=== PATIENT | female | born 1960 | race Caucasian/White ===

== ENCOUNTER 2016-07-15 16:20 | Outpatient (CLI) | payer MEDICAID | END 2016-07-15 16:21 | disposition home or self-care (01) | DX: M16.11 Unilateral primary osteoarthritis, right hip (principal); M17.12 Unilateral primary osteoarthritis, left knee ==

== ENCOUNTER 2017-01-09 13:27 | Emergency (ER) | payer MEDICAID ==
[2017-01-09 13:40] VITALS: BP 138/87
--- NOTE | 2017-01-09 14:18 | ED Physician Documentation ---
PD HPI LOWER EXT INJURY - Stated complaint Stated Complaint: L KNEE PX - Chief complaint Chief Complaint: Ext Problem - History obtained from History obtained from: Patient - History of Present Illness PD HPI LOW EXT INJURY LOCATION: Other (Long-standing anterior left knee pain and pain with flexion. She had x-rays done showing osteoarthritis. Went to the orthopedics office a couple of months ago and had some sort of injection which was ineffective. Declines pain medications, she would just like it fixed. ) Review of Systems Constitutional: denies: Fever, Chills GI: denies: Abdominal Pain, Nausea : denies: Dysuria PD PAST MEDICAL HISTORY - Past Medical History Past Medical History: Yes Cardiovascular: None, Deep vein thrombosis Respiratory: Asthma, COPD, Tuberculosis Neuro: None Endocrine/Autoimmune: None GI: Diverticulitis BOLT SORTER: None : None HEENT: None, Other Psych: Depression, Anxiety, Claustrophobia Musculoskeletal: Osteoarthritis Derm: None Other Past Medical History: upper and lower dentures - Past Surgical History Past Surgical History: Yes General: Cholecystectomy, Appendectomy, Bowel surgery, Liver surgery, Colonoscopy Ortho: Carpal Tunnel surgery /BOLT SORTER: Tubal ligation - Present Medications Home Medications: Ambulatory Orders Medication Instructions Recorded Confirmed Albuterol Sulf [Ventolin Hfa 1 - 2 puffs INH Q4HR PRN #1 inhaler 05/18/16 Inhaler] Azithromycin [Zithromax] 250 mg PO DAILY #6 tablet 05/18/16 Prednisone 40 mg PO DAILY #10 tablet 05/18/16 Meloxicam [Mobic] 7.5 mg PO BIDWM PRN #15 tablet 01/09/17 - Allergies Allergies/Adverse Reactions: Allergies Allergy/AdvReac Type Severity Reaction Status Date / Time No Known Drug Allergies Allergy Verified 01/09/17 13:40 - Social History Does the pt smoke?: Yes Smoking Status: Current every day smoker Does the pt drink ETOH?: No Does the pt have substance abuse?: No - Immunizations Immunizations are current?: Yes - POLST Patient has POLST: No PD ED PE NORMAL - Vitals Vital signs reviewed: Yes - General General: Alert and oriented X 3, No acute distress - Extremities Extremities: Other (Left knee is nontender. She does have pain with flexion, no effusion. No warmth or redness. Ligaments are intact.) - Neuro Neuro: Alert and oriented X 3, Normal speech - Psych Psych: Normal mood, Normal affect Results - Vitals Vitals: Vital Signs - 24 hr 01/09/17 13:38 Temperature 36.7 C Heart Rate 100 Respiratory 17 Rate Blood Pressure 138/87 H O2 Saturation 96 Oxygen O2 Source Room air PD MEDICAL DECISION MAKING - ED course ED course: She declines narcotic pain medication but did accept an anti-inflammatory. She understands she needs to follow-up in the office for evaluation for potential definitive treatment of osteoarthritis of the left knee. Departure - Departure Disposition: 01 Home, Self Care Clinical Impression: Osteoarthritis of left knee Qualifiers: Osteoarthritis type: primary Qualified Code(s): M17.12 - Unilateral primary osteoarthritis, left knee Condition: Good Record reviewed to determine appropriate education?: Yes Instructions: ED Degenerative Joint Disease Follow-Up: Yifan Caraballo MD [Provider Admit Priv/Credential] - Prescriptions: Meloxicam [Mobic] 7.5 mg PO BIDWM PRN #15 tablet PRN Reason: Pain Comments: Your blood pressure was elevated today on check into the emergency department. This does not mean that you have hypertension, it is a common phenomenon to come to the emergency department and have elevated blood pressure. I recommend that she see her primary care physician within the week to have it rechecked when you are feeling better.
== END 2017-01-09 14:28 | disposition home or self-care (01) ==
LOC: ED 13:27
DX: M17.12 Unilateral primary osteoarthritis, left knee (principal); R03.0 Elevated blood-pressure reading, without diagnosis of hypertension; J44.9 Chronic obstructive pulmonary disease, unspecified; J45.909 Unspecified asthma, uncomplicated; F17.200 Nicotine dependence, unspecified, uncomplicated; Z79.52 Long term (current) use of systemic steroids; Z86.718 Personal history of other venous thrombosis and embolism; Z90.49 Acquired absence of other specified parts of digestive tract
CPT/HCPCS: 99283

== ENCOUNTER 2017-03-06 08:00 | Outpatient (CLI) | payer MEDICAID ==
[2017-03-06 20:03] LABS: BASOPHILS # (AUTO) 0.1 10^3/uL (0.0-0.1); BASOPHILS % (AUTO) 0.7 %; EOSINOPHILS # (AUTO) 0.3 10^3/uL (0.0-0.7); EOSINOPHILS % (AUTO) 2.6 %; HCT - HEMATOCRIT 41.7 % (37.0-47.0); HGB - HEMOGLOBIN 13.5 g/dL (12.0-16.0); LYMPHOCYTES # (AUTO) 3.5 10^3/uL (1.5-3.5); LYMPHOCYTES % (AUTO) 32.8 %; MEAN CORPUSCULAR HEMOGLOBIN 26.4 pg (27.0-31.0); MEAN CORPUSCULAR HGB CONC 32.4 g/dL (32.0-36.0); MEAN CORPUSCULAR VOLUME 81.4 fL (81.0-99.0); MEAN PLATELET VOLUME 9.3 fL (7.9-10.8); MONOCYTES # (AUTO) 0.5 10^3/uL (0.0-1.0); MONOCYTES % (AUTO) 4.8 %; NEUTROPHILS # (AUTO) 6.4 10^3/uL (1.5-6.6); NEUTROPHILS % (AUTO) 59.1 %; NUCLEATED RED BLOOD CELLS AUTO 0.1 /100WBC; RED BLOOD COUNT 5.12 10^6/uL (4.20-5.40); RED CELL DISTRIBUTION WIDTH 14.1 % (12.0-15.0); UNCORRECTED WHITE BLOOD COUNT 10.8 x10^3/uL; WHITE BLOOD COUNT 10.8 x10^3/uL (4.8-10.8)
[2017-03-06 20:25] LABS: ALBUMIN/GLOBULIN RATIO 1.2 (1.0-2.2); BILIRUBIN,TOTAL 0.6 mg/dL (0.2-1.0); BUN - BLOOD UREA NITROGEN 11 mg/dL (6-20); CALCIUM 9.3 mg/dL (8.5-10.3); CARBON DIOXIDE - CO2 29 mmol/L (21-32); CHLORIDE 103 mmol/L (101-111); CHOL/HDL RATIO 5.8 (<4.4); CHOLESTEROL 251 mg/dL; CREATININE 0.6 mg/dL (0.4-1.0); GFR - MDRD 103 (>89); GLUCOSE 105 mg/dL (70-100); HDL CHOLESTEROL 43 mg/dL; LDL/HDL RATIO 3.9 (<4.4); POTASSIUM 4.1 mmol/L (3.5-5.0); SODIUM 140 mmol/L (135-145); TOTAL PROTEIN 7.3 g/dL (6.7-8.2); TRIGLYCERIDES 198 mg/dL; VLDL CHOLESTEROL 40 mg/dL
== END 2017-03-06 08:01 | disposition home or self-care (01) ==
LOC: LAB.N 08:00
PROVIDERS: ATTEND Family Medicine
DX: E78.5 Hyperlipidemia, unspecified (principal); F17.200 Nicotine dependence, unspecified, uncomplicated
CPT/HCPCS: 36415; 80053; 80061; 85025

== ENCOUNTER 2017-06-06 17:52 | Emergency (ER) | payer MEDICAID ==
[2017-06-06 17:57] VITALS: BP 130/87
--- NOTE | 2017-06-06 18:20 | ED Physician Documentation ---
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 She just had a grandson and the mom is worried about her potentially being contagious for TB. The patient has no symptoms, no cough no hot, no hemoptysis, weight loss, sweats.) Review of Systems Constitutional: denies: Fever, Chills, Myalgias, Fatigue, Weight Loss, Sweats Nose: reports: Reviewed and negative Cardiac: reports: Reviewed and negative Respiratory: reports: Reviewed and negative PD PAST MEDICAL HISTORY - Past Medical History Cardiovascular: None, Deep vein thrombosis Respiratory: Asthma, COPD, Tuberculosis Neuro: None Endocrine/Autoimmune: None GI: Diverticulitis LAW REPORTER: None : None HEENT: None, Other Psych: Depression, Anxiety, Claustrophobia Musculoskeletal: Osteoarthritis Derm: None - Past Surgical History Past Surgical History: Yes General: Cholecystectomy, Appendectomy, Bowel surgery, Liver surgery, Colonoscopy Ortho: Carpal Tunnel surgery /LAW REPORTER: Tubal ligation - Present Medications Home Medications: Ambulatory Orders Medication Instructions Recorded Confirmed Albuterol Sulf [Ventolin Hfa 1 - 2 puffs INH Q4HR PRN #1 inhaler 05/18/16 Inhaler] - Allergies Allergies/Adverse Reactions: Allergies Allergy/AdvReac Type Severity Reaction Status Date / Time No Known Drug Allergies Allergy Verified 01/09/17 13:40 - Social History Does the pt smoke?: Yes Smoking Status: Current every day smoker Does the pt drink ETOH?: No Does the pt have substance abuse?: No - Immunizations Immunizations are current?: Yes - POLST Patient has POLST: No PD ED PE NORMAL - Vitals Vital signs reviewed: Yes - General General: Alert and oriented X 3, No acute distress - Neuro Neuro: Alert and oriented X 3, Normal speech - Psych Psych: Normal mood, Normal affect Results - Vitals Vitals: Vital Signs - 24 hr 06/06/17 17:55 Temperature 36.2 C L Heart Rate 108 H Respiratory 20 Rate Blood Pressure 130/87 H O2 Saturation 95 Oxygen O2 Source Room air Departure - Departure Disposition: 01 Home, Self Care Clinical Impression: PPD positive, treated Condition: Good Record reviewed to determine appropriate education?: Yes Comments: Follow-up with your doctor for further evaluation and treatment, based that on the fact that she has no symptoms you will not be contagious for TB. Your blood pressure was elevated today on check into the emergency department. This does not mean that you have hypertension, it is a common phenomenon to come to the emergency department and have elevated blood pressure. I recommend that you see your primary care physician within the week to have it rechecked when you are feeling better.
== END 2017-06-06 18:37 | disposition home or self-care (01) ==
LOC: ED 17:52
DX: R76.11 Nonspecific reaction to tuberculin skin test without active tuberculosis (principal); R03.0 Elevated blood-pressure reading, without diagnosis of hypertension; F17.200 Nicotine dependence, unspecified, uncomplicated; Z86.718 Personal history of other venous thrombosis and embolism
CPT/HCPCS: 99281; 99283

== ENCOUNTER 2017-07-07 20:13 | Emergency (ER) | payer MEDICAID ==
[2017-07-07] MEDS ORDERED: predniSONE 20 MG TABLET PO STA (21:07)
[2017-07-07] MEDS ORDERED: IPRATROPIUM/ALBUTEROL 3 ML NEB INH STA (21:07)
[2017-07-07 21:38] VITALS: BP 110/65
--- NOTE | 2017-07-07 21:39 | XRAY Preliminary Report ---
Exam: XR CHEST 2 VIEW X-RAY IMPRESSION: No acute cardiopulmonary abnormality. [facility] SITE ID: [id number]
--- NOTE | 2017-07-07 21:40 | XRAY Report ---
EXAM: CHEST RADIOGRAPHY EXAM DATE: 07/07/2017 08:56 PM. CLINICAL HISTORY: Fever, cough. COMPARISON: 05/18/2016. TECHNIQUE: 2 views. FINDINGS: Lungs/Pleura: There is a calcified granuloma in the right lung which is unchanged. No acute pneumonia or edema. Negative for pleural effusion and pneumothorax. Mediastinum: There is moderate scoliotic curvature of the thoracic spine. The heart size is normal. Other: None. IMPRESSION: No acute cardiopulmonary abnormality. [facility] Referring Provider Line: [phone] SITE ID: [id number]
--- NOTE | 2017-07-07 22:00 | ED Physician Documentation ---
PD HPI DYSPNEA - Stated complaint Stated Complaint: SERGE/DIFF BREATHING - Chief complaint Chief Complaint: Resp - History obtained from History obtained from: Patient, Family - History of Present Illness Timing - onset: How many days ago (4) Timing - details: Gradual onset, Still present Improved by: O2, Inhaler/neb Worsened by: Exertion Associated symptoms: Cough, Wheezing. No: Fever, Chest pain / discomfort, Bilateral edema, Unilateral edema Similar symptoms before: Work up / diagnostics, Treatment Recently seen: Not recently seen - Additional information Additional information: Patient is a 56 year old female with a history of copd and daily smoking who is presenting to the emergency department for worsening cough. patient states that the cough has been going on for about the last week but now she feels like it is in her chest and she wanted to make sure that it wasn't pneumonia. Review of Systems Constitutional: denies: Fever, Chills Eyes: denies: Decreased vision, Photophobia Ears: denies: Ear pain, Drainage/discharge Nose: denies: Rhinorrhea / runny nose, Congestion Throat: denies: Sore throat Cardiac: denies: Chest pain / pressure, Palpitations Respiratory: reports: Dyspnea, Cough, Wheezing. denies: Hemoptysis GI: denies: Nausea, Vomiting : reports: Reviewed and negative Skin: reports: Reviewed and negative Musculoskeletal: reports: Reviewed and negative Neurologic: denies: Generalized weakness, Focal weakness, Altered mental status Psychiatric: reports: Reviewed and negative Endocrine: reports: Reviewed and negative PD PAST MEDICAL HISTORY - Past Medical History Past Medical History: Yes Cardiovascular: None, Deep vein thrombosis Respiratory: Asthma, COPD, Tuberculosis Neuro: None Endocrine/Autoimmune: None GI: Diverticulitis SOLE SEAMER: None : None HEENT: None, Other Psych: Depression, Anxiety, Claustrophobia Musculoskeletal: Osteoarthritis Derm: None - Past Surgical History Past Surgical History: Yes General: Cholecystectomy, Appendectomy, Bowel surgery, Liver surgery, Colonoscopy Ortho: Carpal Tunnel surgery /SOLE SEAMER: Tubal ligation - Present Medications Home Medications: Ambulatory Orders Medication Instructions Recorded Confirmed Albuterol Sulf [Ventolin Hfa 1 - 2 puffs INH Q4HR PRN #1 inhaler 05/18/16 Inhaler] Fluticasone/Salmeterol [Advair 1 puffs INH PRN PRN 07/07/17 07/07/17 250-50 Diskus] predniSONE [Prednisone] 60 mg PO DAILY 5 Days tablet 07/07/17 - Allergies Allergies/Adverse Reactions: Allergies Allergy/AdvReac Type Severity Reaction Status Date / Time varenicline [From Chantix] AdvReac Unknown Verified 07/07/17 20:49 - Social History Does the pt smoke?: Yes Smoking Status: Current every day smoker Does the pt drink ETOH?: No Does the pt have substance abuse?: No - Immunizations Immunizations are current?: Yes - POLST Patient has POLST: No PD ED PE NORMAL - Vitals Vital signs reviewed: Yes - General General: Alert and oriented X 3, Well developed/nourished - HEENT HEENT: Atraumatic, PERRL, Pharynx benign - Neck Neck: Supple, no meningeal sign, No JVD - Abdomen Abdomen: Soft, Non distended - Derm Derm: Normal color, Warm and dry, No rash - Extremities Extremities: No deformity, No edema, No calf tenderness / cord - Neuro Neuro: Alert and oriented X 3, No motor deficit, No sensory deficit, Normal speech - Psych Psych: Normal mood PD ED PE EXPANDED - Cardiac Cardiac: Tachy - Respiratory Respiratory: Wheezing, Rhonchi, Right lower lobe, Left upper lobe, Left lower lobe Results - Vitals Vitals: Vital Signs - 24 hr 07/07/17 07/07/17 07/07/17 20:17 21:37 21:38 Temperature 36.4 C L Heart Rate 110 H 96 97 Respiratory 22 20 20 Rate Blood Pressure 125/96 H 110/65 O2 Saturation 94 92 Oxygen O2 Source Nasal cannula - Rads (name of study) chest x-ray Radiology: Final report received (no acute disease process) PD MEDICAL DECISION MAKING - ED course Complexity details: reviewed old records, reviewed results, re-evaluated patient , considered differential, d/w patient, d/w family ED course: Patient was seen and examined at bedside. patient was started on steroids and three nebulizer treatments and imaging was ordered. When patient returned from imaging the results were reviewed. there was no pneumonia. Patient's wheezing had improved and she had a home nebulizer. patient was treated with tylenol for her headache. Patient required no further work up and was stable for discharge with outpatient follow up. Departure - Departure Disposition: 01 Home, Self Care Clinical Impression: Bronchitis, COPD with exacerbation Condition: Good Instructions: ED Bronchitis Asthmatic Follow-Up: Rafa Silva MD [Primary Care Provider] - Within 3 Days Prescriptions: predniSONE [Prednisone] 60 mg PO DAILY 5 Days tablet Comments: Your chest x-ray today showed no signs of pneumonia. Your symptoms are likely secondary to copd/bronchitis. You will need to be on steroids and increase the use of your inhaler. the most important thing that you can do is to quit smoking. You should follow up with your doctor this week for re-evaluation. You may return to the emergency department at any time for new, worsening or uncontrollable symptoms. Discharge Date/Time: 07/07/17 22:18
[2017-07-07] MEDS ORDERED: ACETAMINOPHEN 500 MG TABLET PO STA (22:11)
== END 2017-07-07 22:18 | disposition home or self-care (01) ==
LOC: ED 20:13
DX: J44.1 Chronic obstructive pulmonary disease with (acute) exacerbation (principal); F17.200 Nicotine dependence, unspecified, uncomplicated
CPT/HCPCS: 71046; 94640; 99283; 99284; A9270; J7512; J7620

== ENCOUNTER 2017-08-31 13:24 | Outpatient (CLI) | payer MEDICAID ==
--- NOTE | 2017-08-31 14:23 | XRAY Report ---
TWO VIEW LUMBAR SPINE: 08/31/2017 CLINICAL INDICATION: Back pain. COMPARISON: CT abdomen and pelvis 05/13/2012. FINDINGS: Frontal and lateral views of the lumbar spine demonstrate mild degenerative disk and facet disease. Mild levoscoliosis is present, stable from CT. There is no evidence of interval fracture or subluxation. The bowel gas pattern appears normal. IMPRESSION: MILD DEGENERATIVE CHANGES AND DEGENERATIVE LEVOSCOLIOSIS, STABLE. NO EVIDENCE OF INTERVAL FRACTURE. TD: 08/31/2017 14:22
== END 2017-08-31 13:25 | disposition home or self-care (01) ==
LOC: DI 13:24
PROVIDERS: ATTEND Family Medicine
DX: M47.896 Other spondylosis, lumbar region (principal); M51.36 Other intervertebral disc degeneration, lumbar region; M41.56 Other secondary scoliosis, lumbar region
CPT/HCPCS: 72100

== ENCOUNTER 2017-12-04 14:06 | Outpatient (CLI) | payer MEDICAID ==
--- NOTE | 2017-12-04 17:20 | XRAY Report ---
TWO VIEW ABDOMEN: 12/04/2017 CLINICAL INDICATION: Pain. FINDINGS: Supine and upright views of the abdomen demonstrate a normal bowel gas pattern. No free intraperitoneal gas is seen. No abnormal calcifications are appreciated overlying either renal shadow. IMPRESSION: NO EVIDENCE OF BOWEL OBSTRUCTION OR PERFORATION. TD: 12/04/2017 15:08
== END 2017-12-04 14:07 | disposition home or self-care (01) ==
LOC: DI.N 14:06
PROVIDERS: ATTEND Physician Assistant Medical
DX: R19.01 Right upper quadrant abdominal swelling, mass and lump (principal)
CPT/HCPCS: 74019

== ENCOUNTER 2018-02-06 08:49 | Outpatient (CLI) | payer MEDICAID ==
--- NOTE | 2018-02-06 23:45 | Ultrasound Report ---
Procedure Date: 02/06/2018 Accession Number: [id number] / [id number] Procedure: US - Abdomen Limited CPT Code: FULL RESULT: EXAM: ABDOMEN ULTRASOUND LIMITED, RUQ EXAM DATE: 02/06/2018 10:45 AM. CLINICAL HISTORY: Right upper quadrant abdominal swelling/palpable lump. History of cholecystectomy and partial hepatectomy in 1989. COMPARISON: CT abdomen/pelvis 05/13/2012. TECHNIQUE: Real-time scanning was performed with static images obtained. FINDINGS: Liver: Echogenic, dense parenchyma, compatible with steatosis. Two avascular echogenic lesions measuring 0.8 x 0.8 x 0.8 cm in the left hepatic lobe and 1.8 x 0.9 x 1.4 cm anterior to the festus hepatis. Main portal vein flow: Hepatopetal. Gallbladder: Surgically absent. Biliary System: CBD measures 6-7 mm. No intrahepatic or extrahepatic ductal dilatation. Kidney: 10.4 cm in length. Normal parenchymal echotexture. No visualized shadowing stones or hydronephrosis. Other: Underlying the area of palpable concern in the right upper quadrant is a partially reducible fat-containing hernia. The hernia sac measures approximately 4.5 x 3.5 cm with Valsalva and 2.0 cm transverse at rest. The hernia neck measures approximately 2.7 x 1.0 cm. Medial/towards midline from the area of palpable concern is a second partially reducible fat-containing hernia. The hernia sac measures approximately 4.2 x 2.9 cm with Valsalva and 1.7 cm transverse at rest. The hernia neck measures approximately 1.0 x 0.8 cm. IMPRESSION: 1. Steatotic liver. 2. Two avascular echogenic lesions within the liver, possibly hemangiomata. The lesions could be definitively characterized with liver protocol MR abdomen with/without contrast. 3. No biliary ductal dilatation post cholecystectomy. 4. Two partially reducible fat-containing hernias in the right upper quadrant, as detailed above. [facility]
== END 2018-02-06 08:50 | disposition home or self-care (01) ==
LOC: DI 08:49
PROVIDERS: ATTEND Physician Assistant Medical
DX: R19.01 Right upper quadrant abdominal swelling, mass and lump (principal); R10.12 Left upper quadrant pain; K76.0 Fatty (change of) liver, not elsewhere classified; K76.9 Liver disease, unspecified; K46.9 Unspecified abdominal hernia without obstruction or gangrene
CPT/HCPCS: 76705

== ENCOUNTER 2018-03-15 17:04 | Emergency (ER) | payer MEDICAID ==
[2018-03-15 18:38] VITALS: BP 127/84
== END 2018-03-15 18:43 | disposition left against medical advice (07) ==
LOC: ED 17:04
DX: Z53.21 Procedure and treatment not carried out due to patient leaving prior to being seen by health care provider (principal)
CPT/HCPCS: 99282

== ENCOUNTER 2018-03-21 13:42 | Outpatient (CLI) | payer MEDICAID ==
[2018-03-21 14:36] LABS: BASOPHILS # (AUTO) 0.1 10^3/uL (0.0-0.1); BASOPHILS % (AUTO) 0.5 %; EOSINOPHILS # (AUTO) 0.2 10^3/uL (0.0-0.7); EOSINOPHILS % (AUTO) 1.7 %; HGB - HEMOGLOBIN 13.5 g/dL (12.0-16.0); LYMPHOCYTES # (AUTO) 3.5 10^3/uL (1.5-3.5); LYMPHOCYTES % (AUTO) 31.2 %; MEAN CORPUSCULAR HEMOGLOBIN 26.7 pg (27.0-31.0); MEAN CORPUSCULAR HGB CONC 33.2 g/dL (32.0-36.0); MEAN CORPUSCULAR VOLUME 80.4 fL (81.0-99.0); MEAN PLATELET VOLUME 8.9 fL (7.9-10.8); MONOCYTES # (AUTO) 0.6 10^3/uL (0.0-1.0); MONOCYTES % (AUTO) 5.6 %; NEUTROPHILS # (AUTO) 6.9 10^3/uL (1.5-6.6); PLT - PLATELET COUNT 296 10^3/uL (130-450); RED BLOOD COUNT 5.03 10^6/uL (4.20-5.40); RED CELL DISTRIBUTION WIDTH 14.2 % (12.0-15.0); WHITE BLOOD COUNT 11.3 x10^3/uL (4.8-10.8)
[2018-03-21 14:45] LABS: ALBUMIN/GLOBULIN RATIO 1.1 (1.0-2.2); ALKALINE PHOSPHATASE 91 IU/L (42-121); ALT ALANINE AMINOTRANSFERASE 18 IU/L (10-60); AST ASPARTATE AMINOTRANSFERASE 21 IU/L (10-42); BILIRUBIN,TOTAL < 0.2 mg/dL (0.2-1.0); BUN - BLOOD UREA NITROGEN 7 mg/dL (6-20); CALCIUM 9.2 mg/dL (8.5-10.3); CARBON DIOXIDE - CO2 28 mmol/L (21-32); CHLORIDE 101 mmol/L (101-111); CREATININE 0.6 mg/dL (0.4-1.0); GFR - MDRD 103 (>89); GLUCOSE 137 mg/dL (70-100); SODIUM 139 mmol/L (135-145); TOTAL PROTEIN 7.7 g/dL (6.7-8.2)
[2018-03-21 15:04] LABS: PLATELET ESTIMATE, MANUAL NORMAL (130-450,000) (NORMAL); PLATELET MORPHOLOGY 2+ LARGE PLATELETS (NORMAL); RBC MORPHOLOGY (MULTIPLE) 1+ POLYCHROMASIA (NORMAL)
== END 2018-03-21 13:43 | disposition home or self-care (01) ==
LOC: LAB 13:42
PROVIDERS: ATTEND Internal Medicine Gastroenterology
DX: R13.10 Dysphagia, unspecified (principal); Z86.718 Personal history of other venous thrombosis and embolism; K76.9 Liver disease, unspecified; K46.9 Unspecified abdominal hernia without obstruction or gangrene; R19.01 Right upper quadrant abdominal swelling, mass and lump
CPT/HCPCS: 36415; 80053; 85025; 93005

== ENCOUNTER 2018-03-21 13:44 | Outpatient (CLI) | payer MEDICAID | END 2018-03-21 13:45 | disposition home or self-care (01) | LOC: RT 13:44 | PROVIDERS: ATTEND Internal Medicine Gastroenterology | DX: R13.10 Dysphagia, unspecified (principal); Z86.718 Personal history of other venous thrombosis and embolism; K76.9 Liver disease, unspecified; K46.9 Unspecified abdominal hernia without obstruction or gangrene; R19.01 Right upper quadrant abdominal swelling, mass and lump | CPT/HCPCS: 93005 ==

== ENCOUNTER 2018-03-25 08:08 | Day surgery (SDC) | payer MEDICAID ==
[2018-03-25] MEDS ORDERED: LACTATED RINGERS 1,000 ML IV ONE (08:26)
[2018-03-25] MEDS ORDERED: MIDAZOLAM 2 MG/2 ML VIAL IVP ONE (09:30)
[2018-03-25] MEDS ORDERED: PROPOFOL 200 MG/20 ML VIAL IVP ONE (09:30)
[2018-03-25] MEDS ORDERED: KETAMINE 500 MG/10 ML VIAL IVP ONE (09:30)
[2018-03-25] MEDS ORDERED: fentaNYL 250 MCG/5 ML VIAL IVP ONE (09:30)
[2018-03-25] MEDS ORDERED: LIDO GARGLE 30 ML BOTTLE ONE (09:32)
--- NOTE | 2018-03-25 10:23 | ANESTHESIA ---
Pre-Anesthesia VS, & Labs - Diagnosis History of colon polyps - Procedure colonoscopy Vital Signs: Temp Pulse Resp BP Pulse Ox 36.6 C 96 18 140/86 H 94 03/25/18 08:34 03/25/18 08:34 03/25/18 08:34 03/25/18 08:34 03/25/18 08:34 Height 5 ft Weight (kg) 101.6 kg Body Mass Index 43.0 - NPO >8 hours - Is Patient ?: No Home Medications and Allergies Home Medications: Ambulatory Orders Medication Instructions Recorded Confirmed Albuterol Sulf [Ventolin Hfa 1 - 2 puffs INH Q4HR PRN #1 inhaler 05/18/16 03/25/18 Inhaler] Fluticasone/Vilanterol [Breo 1 each IH DAILY 03/24/18 03/25/18 Ellipta 100-25 Mcg INH] Fluticasone/Vilanterol [Breo Ellipta 100-25 Mcg INH] 1 each IH DAILY 03/24/18 Allergies/Adverse Reactions: Allergies Allergy/AdvReac Type Severity Reaction Status Date / Time varenicline [From Chantix] AdvReac Unknown Verified 03/24/18 14:08 Anes History & Medical History - Anesthetic History Anesthesia Complications: reports: No previous complications - Medical History Cardiovascular: reports: None Pulmonary: reports: Asthma, COPD Gastrointestinal: reports: Other Urinary: reports: Incontinence Musculoskeletal: reports: Osteoarthritis, Chronic back pain Endocrine/Autoimmune: reports: None Blood Disorders: reports: None Skin: reports: None Smoking Status: Current every day smoker - Surgical History General: Cholecystectomy, Appendectomy, Liver surgery, Other Gynecologic: Other Orthopedic: Carpal Tunnel surgery Exam General: Other (patient sedated and procedure underway prior to arrival. Unable to do a physical assessment) Plan Anesthesia Type: MAC (called for failed nurse sedation. History obtained from chart and nurse report. Total of 8mg versed and 200mcg fentanyl given IV prior to my arrival.) Consent for Procedure(s) Verified and Reviewed: Yes Code Status: Attempt Resuscitation ASA classification: 3-Severe systemic disease Is this case an emergency?: No
[2018-03-25 11:36] VITALS: BP 122/84
== END 2018-03-25 08:09 | disposition home or self-care (01) ==
LOC: SDS 08:08
PROVIDERS: ATTEND Internal Medicine Gastroenterology
PROC: 0DBK8ZZ Excision of Ascending Colon, Via Natural or Artificial Opening Endoscopic (ICD-10-PCS; 2018-03-25)
PROC: 0DBN8ZZ Excision of Sigmoid Colon, Via Natural or Artificial Opening Endoscopic (ICD-10-PCS; 2018-03-25)
PROC: 0DB38ZX Excision of Lower Esophagus, Via Natural or Artificial Opening Endoscopic, Diagnostic (ICD-10-PCS; principal; 2018-03-25 09:30)
PROC: 0DB28ZX Excision of Middle Esophagus, Via Natural or Artificial Opening Endoscopic, Diagnostic (ICD-10-PCS; 2018-03-25 09:30)
DX: D12.2 Benign neoplasm of ascending colon (principal); D12.5 Benign neoplasm of sigmoid colon; K57.30 Diverticulosis of large intestine without perforation or abscess without bleeding; K20.9 Esophagitis, unspecified; K59.00 Constipation, unspecified; R19.7 Diarrhea, unspecified; R13.10 Dysphagia, unspecified; J44.9 Chronic obstructive pulmonary disease, unspecified; F17.210 Nicotine dependence, cigarettes, uncomplicated; E66.9 Obesity, unspecified; Z68.41 Body mass index [BMI] 40.0-44.9, adult; K46.9 Unspecified abdominal hernia without obstruction or gangrene; E78.5 Hyperlipidemia, unspecified; F41.9 Anxiety disorder, unspecified; F32.9 Major depressive disorder, single episode, unspecified; R73.01 Impaired fasting glucose; Z90.49 Acquired absence of other specified parts of digestive tract; Z79.51 Long term (current) use of inhaled steroids; Z86.718 Personal history of other venous thrombosis and embolism; Z87.19 Personal history of other diseases of the digestive system
CPT/HCPCS: 43239; 45380; 45385; A9270; J7120

== ENCOUNTER 2018-10-13 10:06 | Emergency (ER) | payer MEDICAID ==
[2018-10-13] MEDS ORDERED: IPRATROPIUM/ALBUTEROL 3 ML NEB INH STA (10:44)
--- NOTE | 2018-10-13 10:50 | ED Physician Documentation ---
PD HPI DYSPNEA - Stated complaint Stated Complaint: SOA/COUGH - Chief complaint Chief Complaint: Resp - History obtained from History obtained from: Patient - History of Present Illness Timing - onset: How many days ago (Several days) Timing - onset during: Rest Timing - duration: Days Timing - details: Gradual onset Pain level max: 0 Pain level now: 0 Improved by: Rest Worsened by: Exertion Associated symptoms: Cough (Occasionally productive of moy sputum), Wheezing, Chest pain / discomfort (Tightness). No: Fever, Hemoptysis, Palpitations, Diaphoresis, Bilateral edema, Unilateral edema Similar symptoms before: Diagnosis (COPD, does not use any inhalers or nebulizers At home) Recently seen: Not recently seen Review of Systems Constitutional: denies: Fever, Chills Nose: denies: Rhinorrhea / runny nose, Congestion : denies: Dysuria Skin: denies: Rash Musculoskeletal: denies: Neck pain, Back pain Neurologic: denies: Headache PD PAST MEDICAL HISTORY - Past Medical History Cardiovascular: None, Deep vein thrombosis Respiratory: Asthma, COPD, Tuberculosis Endocrine/Autoimmune: None GI: Diverticulitis LEAD MACHINIST: None : None HEENT: None, Other Psych: Depression, Anxiety, Claustrophobia Musculoskeletal: Osteoarthritis Derm: None - Past Surgical History Past Surgical History: Yes General: Cholecystectomy, Appendectomy, Bowel surgery, Liver surgery, Colonoscopy Ortho: Carpal Tunnel surgery /LEAD MACHINIST: Tubal ligation - Present Medications Home Medications: Ambulatory Orders Medication Instructions Recorded Confirmed Albuterol Sulf [Ventolin Hfa 1 - 2 puffs INH Q4HR PRN #1 inhaler 10/13/18 Inhaler] Propranolol [Inderal] 10 mg PO BID 10/13/18 10/13/18 Sertraline [Zoloft] 100 mg PO DAILY 10/13/18 10/13/18 predniSONE [Deltasone] 10 mg PO [id number] #42 tab 10/13/18 - Allergies Allergies/Adverse Reactions: Allergies Allergy/AdvReac Type Severity Reaction Status Date / Time varenicline [From Chantix] AdvReac Unknown Verified 10/13/18 10:29 - Social History Does the pt smoke?: Yes Smoking Status: Current every day smoker Does the pt drink ETOH?: No Does the pt have substance abuse?: No - Immunizations Immunizations are current?: Yes - POLST Patient has POLST: No PD ED PE NORMAL - Vitals Vital signs reviewed: Yes - General General: Alert and oriented X 3, No acute distress, Well developed/nourished - HEENT HEENT: PERRL, Moist mucous membranes - Neck Neck: Supple, no meningeal sign - Cardiac Cardiac: RRR, Strong equal pulses - Respiratory Respiratory: No respiratory distress, Other - Abdomen Abdomen: Soft, Non tender, Non distended - Derm Derm: Warm and dry - Neuro Neuro: Alert and oriented X 3 - Psych Psych: Normal mood, Normal affect Results - Vitals Vitals: Vital Signs - 24 hr 10/13/18 10/13/18 10/13/18 10:26 10:33 11:31 Temperature 36.7 C 36.7 C Heart Rate 92 92 88 Respiratory 16 16 18 Rate Blood Pressure 138/75 H 138/75 H O2 Saturation 96 96 10/13/18 12:12 Temperature 36.4 C L Heart Rate 90 Respiratory 16 Rate Blood Pressure 160/87 H O2 Saturation 93 Oxygen O2 Source Room air - EKG (time done) 1042 Rate: Rate (enter#) (89) Rhythm: NSR [place]: Normal Intervals: Normal NH QRS: Normal Ischemia: Non specific changes - Rads (name of study) cxr Radiology: Prelim report reviewed, EMP read contemporaneously, See rad report (No acute disease) PD MEDICAL DECISION MAKING - ED course Complexity details: reviewed results, re-evaluated patient, considered differential, d/w patient ED course: Patient feels better after nebulizer treatment. Will place on steroids and inhalers for home. Will follow up with her PCP for further care. She is well- appearing, nontoxic. Afebrile. Patient counseled regarding signs and symptoms for which I believe and urgent re-evaluation would be necessary. Patient with good understanding of and agreement to plan and is comfortable going home at this time This document was made in part using voice recognition software. While efforts are made to proofread this document, sound alike and grammatical errors may occur. Departure - Departure Disposition: 01 Home, Self Care Clinical Impression: COPD with exacerbation Instructions: ED COPD Flare Follow-Up: Katie Byrne ARNP [Primary Care Provider] - Within 1 week Prescriptions: Albuterol Sulf [Ventolin Hfa Inhaler] 1 - 2 puffs INH Q4HR PRN #1 inhaler PRN Reason: Shortness Of Air/Wheezing predniSONE [Deltasone] 10 mg PO [id number] #[id number] tab Comments: Use the medications as prescribed. Return if you worsen. Follow-up with your doctor for further care. Discharge Date/Time: 10/13/18 12:22
--- NOTE | 2018-10-13 11:20 | XRAY Report ---
Reason: SOA Procedure Date: 10/13/2018 Accession Number: [id number] / [id number] Procedure: XR - Chest 2 View X-Ray CPT Code: 49051 FULL RESULT: EXAM: CHEST RADIOGRAPHY EXAM DATE: 10/13/2018 10:54 AM. CLINICAL HISTORY: SOA. COMPARISON: 07/07/2017 TECHNIQUE: 2 views. FINDINGS: Lungs/Pleura: Stable right midlung granuloma. Stable linear change left cardiophrenic angle. No focal opacities evident. No pleural effusion. No pneumothorax. Normal volumes. Mediastinum: Heart and mediastinal contours are unremarkable. Other: Stable thoracic dextroscoliosis. IMPRESSION: No acute findings 2-view chest radiography, stable compared with 07/07/2017. [facility]
[2018-10-13] MEDS ORDERED: predniSONE 20 MG TABLET PO STA (11:50)
[2018-10-13] MEDS ORDERED: IBUPROFEN 800 MG TABLET PO STA (11:50)
[2018-10-13 12:13] VITALS: BP 160/87
== END 2018-10-13 12:22 | disposition home or self-care (01) ==
LOC: ED 10:06
DX: J44.1 Chronic obstructive pulmonary disease with (acute) exacerbation (principal); R94.31 Abnormal electrocardiogram [ECG] [EKG]; F17.200 Nicotine dependence, unspecified, uncomplicated
CPT/HCPCS: 71046; 93005; 94640; 99283; 99284; A9270; J7512

== ENCOUNTER 2020-08-16 12:09 | Outpatient (CLI) | payer MEDICAID, OTHER ==
--- NOTE | 2020-08-16 13:21 | XRAY Report ---
PROCEDURE: Chest 2 View X-Ray INDICATIONS: COPD TECHNIQUE: 2 view(s) of the chest. COMPARISON: 10/13/2018. FINDINGS: Surgical changes and devices: None. Lungs and pleura: No pleural effusions or pneumothorax. Small granuloma in the right midlung is stab le. Lungs are clear. Mediastinum: Mediastinal contours are normal. Heart size is normal. Bones and chest wall: No suspicious bony abnormalities. Thoracic spine degenerative disease. Convex right thoracic spine scoliosis. Soft tissues appear unremarkable. IMPRESSION: No acute cardiopulmonary disease process. Reviewed by: Radha Carreon MD, PhD on 08/16/2020 1:20 PM PST Approved by: Radha Carreon MD, PhD on 08/16/2020 1:20 PM PST Station ID: [id number]
== END 2020-08-16 23:59 | disposition home or self-care (01) ==
LOC: DI.N 12:09
PROVIDERS: ATTEND Family Medicine
DX: J20.9 Acute bronchitis, unspecified (principal); J44.0 Chronic obstructive pulmonary disease with (acute) lower respiratory infection; Z20.822 Contact with and (suspected) exposure to COVID-19
CPT/HCPCS: 87275; 87276

== ENCOUNTER 2020-09-24 08:00 | Outpatient (CLI) | payer MEDICAID ==
[2020-09-24 17:55] LABS: BASOPHILS # (AUTO) 0.1 10^3/uL (0.0-0.1); BASOPHILS % (AUTO) 0.5 %; EOSINOPHILS # (AUTO) 0.2 10^3/uL (0.0-0.7); HCT - HEMATOCRIT 44.4 % (37.0-47.0); HGB - HEMOGLOBIN 13.4 g/dL (12.0-16.0); LYMPHOCYTES # (AUTO) 3.3 10^3/uL (1.5-3.5); LYMPHOCYTES % (AUTO) 31.8 %; MEAN CORPUSCULAR HGB CONC 30.2 g/dL (32.0-36.0); MEAN PLATELET VOLUME 11.7 fL (7.9-10.8); MONOCYTES # (AUTO) 0.5 10^3/uL (0.0-1.0); MONOCYTES % (AUTO) 5.1 %; NEUTROPHILS # (AUTO) 6.2 10^3/uL (1.5-6.6); NEUTROPHILS % (AUTO) 59.9 %; PLT - PLATELET COUNT 293 10^3/uL (130-450); RED BLOOD COUNT 5.16 10^6/uL (4.20-5.40); RED CELL DISTRIBUTION WIDTH 13.5 % (12.0-15.0); WHITE BLOOD COUNT 10.3 x10^3/uL (4.8-10.8)
[2020-09-24 18:16] LABS: ALBUMIN 4.1 g/dL (3.2-5.5); ALBUMIN/GLOBULIN RATIO 1.2 (1.0-2.2); ALKALINE PHOSPHATASE 75 IU/L (42-121); ALT ALANINE AMINOTRANSFERASE 16 IU/L (10-60); AST ASPARTATE AMINOTRANSFERASE 16 IU/L (10-42); BILIRUBIN,TOTAL 0.5 mg/dL (0.2-1.0); BUN - BLOOD UREA NITROGEN 15 mg/dL (6-20); CALCIUM 9.1 mg/dL (8.5-10.3); CARBON DIOXIDE - CO2 30 mmol/L (21-32); CHLORIDE 102 mmol/L (101-111); CHOL/HDL RATIO 4.5 (<4.4); CHOLESTEROL 245 mg/dL; CREATININE 0.7 mg/dL (0.4-1.0); GFR - MDRD 85 (>89); GLUCOSE 96 mg/dL (70-100); HDL CHOLESTEROL 54 mg/dL; LDL CHOLESTEROL,CALCULATED 164 mg/dL; POTASSIUM 4.5 mmol/L (3.5-5.0); SODIUM 140 mmol/L (135-145); TOTAL PROTEIN 7.6 g/dL (6.7-8.2); TRIGLYCERIDES 137 mg/dL; VLDL CHOLESTEROL 27 mg/dL
[2020-09-24 18:21] LABS: THYROID STIMULATING HORMONE 2.29 uIU/mL (0.34-5.60)
[2020-09-24 18:23] LABS: FREE T3 3.03 pg/mL (2.5-3.9); FREE T4 (FREE THYROXINE) 0.85 ng/dL (0.58-1.64)
[2020-09-24 20:10] LABS: ESTIMATED AVERAGE GLUCOSE 148 mg/dL (70-100); HEMOGLOBIN A1c% 6.8 % (4.27-6.07)
== END 2020-09-24 23:59 | disposition home or self-care (01) ==
LOC: LAB.WCP 08:00
PROVIDERS: ATTEND Family Medicine
DX: J44.9 Chronic obstructive pulmonary disease, unspecified (principal); E66.01 Morbid (severe) obesity due to excess calories; R13.10 Dysphagia, unspecified; F17.210 Nicotine dependence, cigarettes, uncomplicated; R73.01 Impaired fasting glucose
CPT/HCPCS: 36415; 80053; 80061; 83036; 83721; 84439; 84443; 84481; 85025

== ENCOUNTER 2020-11-06 07:00 | Outpatient (CLI) | payer MEDICAID ==
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
== END 2020-11-06 23:59 | disposition home or self-care (01) ==
LOC: DI.N 07:00
PROVIDERS: ATTEND Nurse Practitioner
DX: S69.91XA Unspecified injury of right wrist, hand and finger(s), initial encounter (principal)

== ENCOUNTER 2021-01-10 14:28 | Outpatient (CLI) | payer MEDICAID ==
[2021-01-10 17:59] LABS: BASOPHILS % (AUTO) 0.3 %; EOSINOPHILS # (AUTO) 0.2 10^3/uL (0.0-0.7); EOSINOPHILS % (AUTO) 1.4 %; HCT - HEMATOCRIT 43.9 % (37.0-47.0); HGB - HEMOGLOBIN 13.4 g/dL (12.0-16.0); LYMPHOCYTES # (AUTO) 2.9 10^3/uL (1.5-3.5); LYMPHOCYTES % (AUTO) 24.9 %; MEAN CORPUSCULAR HEMOGLOBIN 26.2 pg (27.0-31.0); MEAN CORPUSCULAR HGB CONC 30.5 g/dL (32.0-36.0); MEAN CORPUSCULAR VOLUME 85.9 fL (81.0-99.0); MEAN PLATELET VOLUME 11.3 fL (7.9-10.8); MONOCYTES # (AUTO) 0.7 10^3/uL (0.0-1.0); MONOCYTES % (AUTO) 5.8 %; NEUTROPHILS # (AUTO) 7.8 10^3/uL (1.5-6.6); NEUTROPHILS % (AUTO) 67.3 %; PLT - PLATELET COUNT 309 10^3/uL (130-450); RED BLOOD COUNT 5.11 10^6/uL (4.20-5.40); RED CELL DISTRIBUTION WIDTH 13.6 % (12.0-15.0); WHITE BLOOD COUNT 11.6 x10^3/uL (4.8-10.8)
[2021-01-10 18:21] LABS: ALBUMIN 4.2 g/dL (3.2-5.5); ALBUMIN/GLOBULIN RATIO 1.2 (1.0-2.2); BILIRUBIN,TOTAL 0.3 mg/dL (0.2-1.0); CALCIUM 9.2 mg/dL (8.5-10.3); CREATININE 0.7 mg/dL (0.4-1.0); TOTAL PROTEIN 7.8 g/dL (6.7-8.2)
== END 2021-01-10 14:29 | disposition home or self-care (01) ==
LOC: LAB.N 14:28
PROVIDERS: ATTEND Family Medicine
DX: R10.13 Epigastric pain (principal)
CPT/HCPCS: 36415; 80053; 85025

== ENCOUNTER 2021-01-10 14:31 | Outpatient (CLI) | payer MEDICAID ==
--- NOTE | 2021-01-10 15:46 | XRAY Report ---
PROCEDURE: Lumbar Spine Complete INDICATIONS: CHRONIC LOW BACK PAIN TECHNIQUE: 4 views of the lumbar spine were acquired. COMPARISON: Lumbar spine radiographs 08/31/2017 FINDINGS: Bones: 5 [id number]-[id number] vertebrae are present. There is mild levoconvex curvature of the lumbar spi ne. No vertebral body compression fractures. No suspicious bony lesions. Multilevel mild disc space narrowing and degenerative endplate changes are seen. Facet hypertrophy is seen from L2-3 through L5 -S1. No spondylolysis is identified on bilateral oblique views. Soft tissues: Overlying bowel gas pattern is normal. No suspicious soft tissue calcifications. Aor tic atherosclerotic calcifications are present. IMPRESSION: No acute osseous abnormality. Multilevel spondylosis. Mild levoscoliosis does not appear significantly changed. Reviewed by: Jose A Silverman MD on 01/10/2021 3:44 PM PDT Approved by: Jose A Silverman MD on 01/10/2021 3:44 PM PDT Station ID: [id number]
== END 2021-01-10 14:32 | disposition home or self-care (01) ==
LOC: DI.N 14:31
PROVIDERS: ATTEND Family Medicine
DX: M47.816 Spondylosis without myelopathy or radiculopathy, lumbar region (principal); M47.817 Spondylosis without myelopathy or radiculopathy, lumbosacral region; M41.9 Scoliosis, unspecified

== ENCOUNTER 2021-03-20 09:47 | Outpatient (CLI) | payer OTHER, MEDICAID ==
--- NOTE | 2021-03-20 12:44 | XRAY Report ---
PROCEDURE: Knee 3 View RT INDICATIONS: KNEE PAIN TECHNIQUE: 3 views of the right knee were acquired. COMPARISON: Knee radiographs 11/19/2016. FINDINGS: Bones: No acute fractures or dislocations. No suspicious bony lesions. Small superior and inferior patellar enthesophytes. Soft tissues: Small joint effusion. No suspicious soft tissue calcifications. IMPRESSION: 1. No acute osseous abnormality. If symptoms persist or there is continued clinical concern, further evaluation with MRI or CT may be helpful. 2. Small joint effusion. Reviewed by: Jose A Silverman MD on 03/20/2021 12:43 PM PDT Approved by: Jose A Silverman MD on 03/20/2021 12:43 PM PDT Station ID: [id number]
== END 2021-03-20 09:48 | disposition home or self-care (01) ==
LOC: DI 09:47
DX: M25.561 Pain in right knee (principal); M25.461 Effusion, right knee

== ENCOUNTER 2022-01-24 10:05 | Emergency (ER) | payer MEDICARE, MEDICAID ==
[2022-01-24 10:19] VITALS: BP 171/86
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
[2022-01-24] MEDS ORDERED: oxyCODONE 5 MG TABLET PO STA (10:49)
[2022-01-24] MEDS ORDERED: LIDOCAINE JELLY 2% 6 ML JEL.PF.APP TOP STA (10:49)
[2022-01-24] MEDS ORDERED: ACETAMINOPHEN 325 MG TABLET PO STA (10:49)
[2022-01-24] MEDS ORDERED: BACITRACIN ZINC OINT 1 PACKET TOP STA (10:56)
== END 2022-01-24 12:12 | disposition home or self-care (01) ==
LOC: ED 10:05
DX: T23.202A Burn of second degree of left hand, unspecified site, initial encounter (principal); T23.232A Burn of second degree of multiple left fingers (nail), not including thumb, initial encounter; F17.200 Nicotine dependence, unspecified, uncomplicated
CPT/HCPCS: 99282; 99283; A9270